=== PATIENT | female | born 1935 | race Caucasian/White ===

== ENCOUNTER → 2017-12-22 10:37 | Outpatient (CLI) | payer MEDICARE, OTHER, SELFPAY ==
[2017-10-19 13:16] VITALS: BP 148/74; BP 150/78; BP 152/77
[2017-11-30 12:57] VITALS: BP 152/86; BMI 18.2
--- NOTE | 2017-12-22 10:41 | ECHOD_ITS ---
Reason For Study: HTN Procedure This was a 2D Doppler, Color Flow transthoracic echocardiogram. Exam performed in department. Left Ventricle Normal LV size. Mid cavitary false tendon noted. Left ventricular systolic function is normal. The estimated ejection fraction is 65 %. Stage 1 diastolic dysfunction. No regional wall motion abnormalities noted. Right Ventricle Normal RV size. Normal systolic function. Atria Normal left atrium. Normal right atrium. Mitral Valve Normal mitral valve. Mild (1+) eccentric mitral valve insufficiency. Tricuspid Valve Normal tricuspid valve. Mild (1+) tricuspid valve insufficiency. Pulmonary artery systolic pressure is 30 mmHg. Aortic Valve Trisinus/trileaflet aortic valve. Mild focal aortic valve calcification. Mild (1+) aortic valve insufficiency. Pulmonic Valve Normal pulmonic valve. Great Vessels Normal aortic root. The pulmonary artery is normal size. Normal inferior vena cava. Pericardium/Pleural No pericardial effusion. MMode/2D Measurements & Calculations LVIDd: 3.6 cm IVSd: 1.1 cm LVOT diam: 2.0 cm LVIDs: 2.3 cm LVPWd: 0.99 cm LVOT area: 3.1 cm2 RVDd: 2.9 cm FS: 35.2 % Ao root diam: 2.7 cm LAV(MOD-bp): 46.6 ml LA A4 area: 16.1 cm2 LA dimension: 3.1 cm LAV(MOD-bp) Indexed: 31.9 ml/m2 LAV(MOD-sp2): 47.8 ml LAV(MOD-sp4): 41.8 ml RA A4 area: 13.5 cm2 Doppler Measurements & Calculations MV E max oren: 92.1 cm/sec Lat Peak E' Oren: 7.8 cm/sec Med Peak E' Oren: 5.3 cm/sec MV A max orne: 114.3 cm/sec E/E' lat: 11.8 E/E' med: 17.4 MV E/A: 0.81 Ao V2 max: 179.8 cm/sec AI max oren: 392.0 cm/sec LV V1 max: 113.4 cm/sec Ao max P.9 mmHg AI max P.5 mmHg LV V1 max P.1 mmHg Ao V2 mean: 129.4 cm/sec AI dec slope: 195.1 cm/sec2 LV V1 mean P.8 mmHg Ao mean P.3 mmHg AI P1/2t: 588.6 msec LV V1 mean: 79.6 cm/sec Ao V2 VTI: 33.7 cm LV V1 VTI: 21.9 cm PANKAJ(I,D): 2.0 cm2 PANKAJ(V,D): 2.0 cm2 SV(LVOT): 68.6 ml PA V2 max: 82.1 cm/sec TR max oren: 251.5 cm/sec TR max P.3 mmHg Interpretation Summary Normal LV size. Left ventricular systolic function is normal. The estimated ejection fraction is 65 %. Stage 1 diastolic dysfunction. Mild (1+) aortic valve insufficiency. Ordering Physician: Luis Leiva Referring Physician: Franci Zendejas Performed By: Katheryn Nation, KATHERINE, RVT
== END ==
PROVIDERS: Family Provider Internal Medicine; PCP Internal Medicine; Visit Provider Internal Medicine Cardiovascular Disease
DX: I35.1 Nonrheumatic aortic (valve) insufficiency (principal); I10 Essential (primary) hypertension
CPT/HCPCS: 93306

== ENCOUNTER → 2017-12-26 21:00 | Outpatient (REF) | payer MEDICARE, OTHER, SELFPAY ==
[2017-12-27 08:20] LABS: Color, Urine Yellow (Yellow); Glucose, Dipstick Normal (Normal); Ketone-Dipstick Negative (Negative); Leukocyte Esterase-Dipstick 500 /ul (Negative); Nitrite-Dipstick Positive (Negative); Occult Blood-Urine 50 /ul (Negative); Protein-Dipstick 30 mg/dl (Negative); Urine Bilirubin Dipstick Negative (Negative); Urine Clarity Cloudy (Clear); Urine Urobilinogen Normal (Normal)
== END ==
LOC: OLS.DANBUR 21:00
PROVIDERS: Visit Provider Internal Medicine
DX: N39.0 Urinary tract infection, site not specified (principal)
CPT/HCPCS: 81002; 87077; 87086; 87088; 87186

== ENCOUNTER 2019-03-16 21:03 | Emergency (ER) | payer MEDICARE, OTHER, SELFPAY ==
[2017-11-30 12:57] VITALS: BMI 18.2
[2019-03-16 21:05] VITALS: BP 162/88; PULSE 73; RESP 18; TEMP 36.7; O2SAT 98; BMI 18.3
--- NOTE | 2019-03-16 21:47 | CT_ITS ---
HISTORY: FALL, LACERATION TO BACK OF HEAD. NO LOC EXAM/TECHNIQUE: CT Head or Brain W/O Contrast: Multiplanar reformats provided. COMPARISON: None. FINDINGS: # of images incl. paperwork: 220 No evidence of intracranial hemorrhage, hydrocephalus mass, or acute infarct. No skull fracture. Scattered chronic appearing hypodensities in the cerebral white matter. Calcific atherosclerosis of the intracranial arteries. Laceration high posterior scalp to the right of midline. CT/Brain/Head without Contrast IMPRESSION: No evidence of intracranial injury or skull fracture. Individualized dose optimization techniques were used for this CT. at 2226 Reported and signed by: Chucho Sherwood MD Electronically Signed: Chucho Sherwood, at 22:24 EDT Tel , Service support ,
--- NOTE | 2019-03-16 22:04 | ED.VIS.INJ ---
History of Present Illness Chief Complaint: Head Injury Informant: Patient, Family Onset: Hours - 1-2 Mechanism/Context: Fall Quality of Pain: Aching, - - sore Location: occipital scalp Current Severity: Mild Maximum Severity: Moderate Worsened by: palpation Relieved by: leaving alone Associated Symptoms: Negative for: Weakness, Inability to ambulate, Loss of consciousness, Amnesia Narrative: Patient has a history of peripheral neuropathy which causes her to sometimes lose her balance. She states that happened tonight, she lost her balance while turning, and fell against the corner of a piece of furniture in her bedroom, creating a scalp laceration in the occipital lesion with bleeding. No loss of consciousness. She does have a headache. No focal neurologic symptoms that are new, except for her chronic paresthesias from her neuropathy in her hands and feet. No nausea or vomiting or mental status changes. She takes no antiplatelet or anticoagulant medications. Tetanus Immunization: >10 years - Past Medical History (1) Peripheral neuropathy Status: Chronic (2) Hypertension Status: Chronic Past Medical History - Allergies and Home Meds Allergies/Adverse Reactions: Allergies enalaprilat [From Vasotec] Allergy (Verified 03/16/19 21:07) Swelling Primary Care Physician: Franci Zendejas MD [Primary Care Provider] - Surgical History: - - hysterectemy, surgery on bladder for incontinence. Lives: Alone Smoking Status: Former smoker - Family History Maternal Family History: Family History (Last Reviewed 11/30/17 @ 13:47 by Luis Leiva MD) Mother Colon cancer Sister Cancer Family History: Reports: - - colon cancer in mother Sibling Family History: Family History (Last Reviewed 11/30/17 @ 13:47 by Luis Leiva MD) Mother Colon cancer Sister Cancer Family History: Reports: - - sister with ovarian cancer. Review of Systems General: Denies: Chills, Fever Eyes: Denies: Visual changes - bilaterally, Diplopia ENT: Denies: Bilateral ear pain, Rhinorrhea, Sore throat Cardiovascular: Denies: Chest pain, Palpitations Respiratory: Denies: Dyspnea, Cough Gastrointestinal: Denies: Abdominal pain, Nausea, Vomiting Musculoskeletal: Denies: Neck pain, Back pain, Swelling, Extremity Pain Skin: Reports: Wounds. Denies: Rash Neurological: Reports: Headache, Numbness - chronic, unchanged. Denies: Weakness Physical Exam Vital Signs/Narrative: Vital Signs Temp Pulse Resp BP Pulse Ox 03/16/19 21:05 98.0 F 73 18 162/88 H 98 Inital Vital Signs reviewed: Yes General: Well nourished, Well developed Head: Normocephalic, Trauma - occipital scalp lac, Tenderness - occipital scalp. no crepitance or depression. Eyes: Perrl, EOMI ENT: TM's clear, No hemotympanum or drainage, No trauma. Negative for: Hemotympanum, Otorrhea, Nasal trauma Neck: Nontender, Full ROM. Negative for: Spinal Tenderness Skin: Normal color, No rash, Trauma - 4cm curvilinear laceration occipital scalp, clean, down to but not involving galea Neurological: Alert, Oriented x3, Cranial nerves II-XII grossly intact, Normal Strength, Normal Sensation, Normal Gait Psychological: Normal affect - Coma Scale Eye Opening: Spontaneous Motor: Obeys Commands Verbal: Oriented Coma Scale Total: 15 Diagnostic/Tx/Re-eval Clinical Impression(s) from Imaging Studies Brain CT 03/16/19 21:47 IMPRESSION: No evidence of intracranial injury or skull fracture. Individualized dose optimization techniques were used for this CT. at 2226 Reported and signed by: Chucho Shrewood MD Electronically Signed: Chucho Sherwood, at 22:24 EDT Tel , Service support , - Medical Decision Making Pt declines offer for tetanus update. Head CT was unremarkable. Her laceration was cleansed and scrubbed after it was locally anesthetized with lidocaine with epinephrine, irrigated under pressure, and closed with 5 skin mary ann. Advised to have them reevaluated in 5-7 days for removal. Procedures - Lacerations occipital scalp Length: 4 cm Depth: Sub Q - to galea Shape: Linear - curvilinear Prep: Sterile Conditions, Chlorhexadine Laceration Repair: Lidocaine with epi - 7cc Irrigated (ml): 40 Number of Sutures/[place]: 5 Suture Information: - - mary ann Comment: good skin edge apposition and hemostasis. no complications. tolerated well. ED Disposition - Plan for ED Patient: Disposition: Home or Assisted Living Diagnosis: Closed head injury without loss of consciousness, Occipital scalp laceration Instructions: ED Head Injury Closed, ED Laceration Scalp Stitch Or Stap Referrals: Franci Zendejas MD [Primary Care Provider] - (5-7 days for wound reevaluation and staple removal)
--- NOTE | 2019-03-16 22:08 | ED.DCSUM_ITS ---
History of Present Illness Chief Complaint: Head Injury Informant: Patient, Family Onset: Hours - 1-2 Mechanism/Context: Fall Quality of Pain: Aching, - - sore Location: occipital scalp Current Severity: Mild Maximum Severity: Moderate Worsened by: palpation Relieved by: leaving alone Associated Symptoms: Negative for: Weakness, Inability to ambulate, Loss of consciousness, Amnesia Narrative: Patient has a history of peripheral neuropathy which causes her to sometimes lose her balance. She states that happened tonight, she lost her balance while turning, and fell against the corner of a piece of furniture in her bedroom, creating a scalp laceration in the occipital lesion with bleeding. No loss of consciousness. She does have a headache. No focal neurologic symptoms that are new, except for her chronic paresthesias from her neuropathy in her hands and fe et. No nausea or vomiting or mental status changes. She takes no antiplatelet or anticoagulant medications. Tetanus Immunization: >10 years - Past Medical History (1) Peripheral neuropathy Status: Chronic (2) Hypertension Status: Chronic Past Medical History - Allergies and Home Meds Allergies/Adverse Reactions: Allergies enalaprilat [From Vasotec] Allergy (Verified 03/16/19 21:07) Swelling Primary Care Physician: Franci Zendejas MD [Primary Care Provider] - Surgical History: - - hysterectemy, surgery on bladder for incontinence. Lives: Alone Smoking Status: Former smoker - Family History Maternal Family History: Family History (Last Reviewed 11/30/17 @ 13:47 by Luis Leiva MD) Mother Colon cancer Sister Cancer Family History: Reports: - - colon cancer in mother Sibling Family History: Family History (Last Reviewed 11/30/17 @ 13:47 by Luis Leiva MD) Mother Colon cancer Sister Cancer Family History: Reports: - - sister with ovarian cancer. Review of Systems General: Denies: Chills, Fever Eyes: Denies: Visual changes - bilaterally, Diplopia ENT: Denies: Bilateral ear pain, Rhinorrhea, Sore throat Cardiovascular: Denies: Chest pain, Palpitations Respiratory: Denies: Dyspnea, Cough Gastrointestinal: Denies: Abdominal pain, Nausea, Vomiting Musculoskeletal: Denies: Neck pain, Back pain, Swelling, Extremity Pain Skin: Reports: Wounds. Denies: Rash Neurological: Reports: Headache, Numbness - chronic, unchanged. Denies: Weakness Physical Exam Vital Signs/Narrative: Vital Signs Temp Pulse Resp BP Pulse Ox 03/16/19 21:05 98.0 F 73 18 162/88 H 98 Inital Vital Signs reviewed: Yes General: Well nourished, Well developed Head: Normocephalic, Trauma - occipital scalp lac, Tenderness - occipital scalp. no crepitance or depression. Eyes: Perrl, EOMI ENT: TM's clear, No hemotympanum or drainage, No trauma. Negative for: Hemotympanum, Otorrhea, Nasal trauma Neck: Nontender, Full ROM. Negative for: Spinal Tenderness Skin: Normal color, No rash, Trauma - 4cm curvilinear laceration occipital scalp, clean, down to but not involving galea Neurological: Alert, Oriented x3, Cranial nerves II-XII grossly intact, Normal Strength, Normal Sensation, Normal Gait Psychological: Normal affect - Coma Scale Eye Opening: Spontaneous Motor: Obeys Commands Verbal: Oriented Coma Scale Total: 15 Diagnostic/Tx/Re-eval Clinical Impression(s) from Imaging Studies Brain CT 03/16/19 21:47 IMPRESSION: No evidence of intracranial injury or skull fracture. Individualized dose optimization techniques were used for this CT. at 2226 Reported and signed by: Chucho Sherwood MD Electronically Signed: Chucho Sherwood, at 22:24 EDT Tel , Service support , - Medical Decision Making Pt declines offer for tetanus update. Head CT was unremarkable. Her laceration was cleansed and scrubbed after it was locally anesthetized with lidocaine with epinephrine, irrigated under pressure, and closed with 5 skin ryan. Advised to have them reevaluated in 5-7 days for removal. Procedures - Lacerations occipital scalp Length: 4 cm Depth: Sub Q - to galea Shape: Linear - curvilinear Prep: Sterile Conditions, Chlorhexadine Laceration Repair: Lidocaine with epi - 7cc Irrigated (ml): 40 Number of Sutures/[place]: 5 Suture Information: - - ryan Comment: good skin edge apposition and hemostasis. no complications. tolerated well. ED Disposition - Plan for ED Patient: Disposition: Home or Assisted Living Diagnosis: Closed head injury without loss of consciousness, Occipital scalp laceration Instructions: ED Head Injury Closed, ED Laceration Scalp Stitch Or Stap Referrals: Franci Zendejas MD [Primary Care Provider] - (5-7 days for wound reevaluation and staple removal)
[2019-03-16 23:47] VITALS: BP 152/87; PULSE 89; RESP 16; O2SAT 98
[2019-03-17 00:07] VITALS: BP 162/82; PULSE 87; RESP 16; O2SAT 98
== END 2019-03-17 00:14 | disposition home or self-care (01) ==
PROVIDERS: Emergency Provider Emergency Medicine; Family Provider Internal Medicine; PCP Internal Medicine
DX: S01.01XA Laceration without foreign body of scalp, initial encounter (principal); W22.03XA Walked into furniture, initial encounter; Y93.9 Activity, unspecified; Y92.003 Bedroom of unspecified non-institutional (private) residence as the place of occurrence of the external cause; Y99.9 Unspecified external cause status; I10 Essential (primary) hypertension; G62.9 Polyneuropathy, unspecified; Z87.891 Personal history of nicotine dependence
CPT/HCPCS: 12002; 70450; 99283

== ENCOUNTER 2019-04-26 23:50 | Emergency (ER) | payer MEDICARE, OTHER, SELFPAY ==
[2019-04-26 23:50] VITALS: BP 143/82; PULSE 69; RESP 16; TEMP 36.2; O2SAT 96; BMI 20.2
--- NOTE | 2019-04-27 02:02 | RAD_ITS ---
HISTORY: Status post fall with left-sided chest and rib pain XR Ribs Unilateral W/ PA Chest Min 3 Views TECHNIQUE: Single frontal view of chest and 4 views of the left ribs. # of images incl. paperwork: 5 COMPARISON: Chest x-ray 10/19/2017 FINDINGS: Normal heart size. Tortuous calcified aorta. Pulmonary vasculature appears normal. Left lung base discoid atelectasis versus scarring. Minimal left pleural effusion. No right pleural effusion. No pneumothorax. Minimally displaced posterior left eighth rib fracture. Nondisplaced fractures of the posterior aspect of left fifth, sixth, and seventh ribs. RAD/Ribs Uni Min 3V w/PA Chest IMPRESSION: 1. Left basilar discoid atelectasis versus scarring. 2. Probable minimal left pleural effusion. 3. Minimally displaced posterior left eighth rib fracture. Nondisplaced fractures posterior left fifth through seventh ribs. No pneumothorax. at 0244 Reported and signed by: Toro Rodgers MD Electronically Signed: Toro Rodgers MD at 2:43 EDT Tel , Service support ,
[2019-04-27] MEDS: traMADol 50 MG Tablet PO (02:28)
--- NOTE | 2019-04-27 03:15 | ED.VISSUMM ---
- ER Visit Summary Date of Service: 04/27/19 Chief Complaint: Fall History of Present Illness: The patient is a 83 F who presents after a fall. She presents from [facility]. She normally uses a walker but was not using it at the time of the fall. She actually fell twice today. She initially fell into a wall. She then fell into the corner of a table into the back of her left chest. She denies any head injury headache loss of consciousness amnesia. She is not anticoagulated. She denies any extremity injuries. Physical Examination: Afebrile vitals unremarkable Moist mucous membranes Heart regular rate and rhythm Patient has left posterior chest tenderness no crepitus no rib step-off Abdomen soft nontender Active full range of motion x4 extremities without pain Alert and oriented no focal or lateralizing neurological deficits Test Results: Rib series with PA chest shows minimally displaced left eighth rib fracture as well as left fifth through seventh rib fractures. No pneumothorax. Emergency Department Course and Treatment: Patient was given tramadol here and does feel better on reevaluation. She is already at a [facility] facility. She will be given a prescription for tramadol for pain control and discharged. Treatment Plan: [] Disposition: Discharge Impression: Left fifth through eighth rib fractures. This note was generated with Q[employer] dictation software. It may contain incorrect words, spelling, and punctuation that were not noted in review of the chart prior to signing ED Disposition - Plan for ED Patient: Referrals: Franci Zendejas MD [Primary Care Provider] -
--- NOTE | 2019-04-27 03:17 | ED.DEP ---
ED Disposition - Plan for ED Patient: Instructions: FRACTURE, Rib Prescriptions: traMADol [Ultram] 50 mg PO Q6H PRN 5 Days #20 tab PRN Reason: Pain Prescription Printed Referrals: Franci Zendejas MD [Primary Care Provider] - Additional Instructions: Use incentive spirometer hourly while awake
[2019-04-27 03:41] VITALS: BP 146/80; PULSE 64; RESP 14; O2SAT 96
== END 2019-04-27 03:46 | disposition home or self-care (01) ==
PROVIDERS: Emergency Provider Emergency Medicine; Family Provider Internal Medicine; PCP Internal Medicine
DX: S22.42XA Multiple fractures of ribs, left side, initial encounter for closed fracture (principal); W17.89XA Other fall from one level to another, initial encounter; Y93.9 Activity, unspecified; Y92.89 Other specified places as the place of occurrence of the external cause; Y99.9 Unspecified external cause status; I10 Essential (primary) hypertension; G62.9 Polyneuropathy, unspecified
CPT/HCPCS: 71101; 99283

== ENCOUNTER → 2019-05-30 02:15 | Outpatient (REF) | payer MEDICARE, OTHER, SELFPAY ==
[2019-05-30 08:47] LABS: Color, Urine Yellow (Yellow); Glucose, Dipstick Normal (Normal); Ketone-Dipstick Negative (Negative); Leukocyte Esterase-Dipstick 500 /ul (Negative); Nitrite-Dipstick Negative (Negative); Occult Blood-Urine 25 /ul (Negative); Protein-Dipstick 30 mg/dl (Negative); Specific Gravity, Urine 1.015 (1.002-1.030); Urine Bilirubin Dipstick Negative (Negative); Urine Clarity Sl. Cloudy (Clear); Urine Urobilinogen Normal (Normal)
== END ==
LOC: OLS.DANBUR 02:15
PROVIDERS: Visit Provider Internal Medicine
DX: N39.0 Urinary tract infection, site not specified (principal); R30.0 Dysuria; R35.0 Frequency of micturition; R32 Unspecified urinary incontinence
CPT/HCPCS: 81002; 87077; 87086; 87088; 87186

== ENCOUNTER → 2019-09-11 20:00 | Outpatient (REF) | payer MEDICARE, OTHER, SELFPAY ==
[2019-09-12 08:23] LABS: Color, Urine Yellow (Yellow); Glucose, Dipstick Normal (Normal); Ketone-Dipstick Negative (Negative); Leukocyte Esterase-Dipstick 500 /ul (Negative); Nitrite-Dipstick Negative (Negative); Occult Blood-Urine 25 /ul (Negative); Protein-Dipstick 15 mg/dl (Negative); Specific Gravity, Urine 1.015 (1.002-1.030); Urine Bilirubin Dipstick Negative (Negative); Urine Clarity Cloudy (Clear); Urine Urobilinogen Normal (Normal)
== END ==
LOC: OLS.DANBUR 20:00
PROVIDERS: Visit Provider Internal Medicine
DX: N39.0 Urinary tract infection, site not specified (principal)
CPT/HCPCS: 81002; 87077; 87086; 87088; 87186

== ENCOUNTER → 2019-12-05 19:00 | Outpatient (REF) | payer MEDICARE, OTHER, SELFPAY ==
[2019-12-06 09:12] LABS: Color, Urine Yellow (Yellow); Glucose, Dipstick Normal (Normal); Ketone-Dipstick 5 mg/dl (Negative); Leukocyte Esterase-Dipstick 500 /ul (Negative); Nitrite-Dipstick Negative (Negative); Occult Blood-Urine 150 /ul (Negative); Protein-Dipstick 100 mg/dl (Negative); Specific Gravity, Urine 1.015 (1.002-1.030); Urine Bilirubin Dipstick Negative (Negative); Urine Clarity Cloudy (Clear); Urine Urobilinogen Normal (Normal)
== END ==
LOC: OLS.DANBUR 19:00
PROVIDERS: PCP Internal Medicine; Visit Provider Internal Medicine
DX: N39.0 Urinary tract infection, site not specified (principal)
CPT/HCPCS: 81002; 87086; 87088; 87186

== ENCOUNTER → 2020-07-10 18:00 | Outpatient (REF) | payer MEDICARE, OTHER, SELFPAY ==
[2020-07-12 17:47] LABS: Color, Urine Yellow (Yellow); Glucose, Dipstick Normal (Normal); Ketone-Dipstick Negative (Negative); Leukocyte Esterase-Dipstick 500 /ul (Negative); Nitrite-Dipstick Negative (Negative); Occult Blood-Urine 10 /ul (Negative); Protein-Dipstick 15 mg/dl (Negative); Urine Bilirubin Dipstick Negative (Negative); Urine Clarity Clear (Clear); Urine Urobilinogen Normal (Normal)
== END ==
LOC: OLS.DANBUR 18:00
PROVIDERS: PCP Internal Medicine; Referring Provider Internal Medicine; Visit Provider Internal Medicine
DX: R41.0 Disorientation, unspecified (principal)
CPT/HCPCS: 81002; 87077; 87086; 87088; 87186

== ENCOUNTER → 2020-11-06 07:56 | Outpatient (REF) | payer MEDICARE, OTHER, SELFPAY ==
[2020-11-07 08:19] LABS: Color, Urine Yellow (Yellow); Glucose, Dipstick Normal (Normal); Ketone-Dipstick Negative (Negative); Leukocyte Esterase-Dipstick 500 /ul (Negative); Nitrite-Dipstick Negative (Negative); Occult Blood-Urine 10 /ul (Negative); Protein-Dipstick 15 mg/dl (Negative); Specific Gravity, Urine 1.025 (1.002-1.030); Urine Bilirubin Dipstick Negative (Negative); Urine Clarity Sl. Cloudy (Clear); Urine Urobilinogen Normal (Normal)
== END ==
LOC: OLS.DANBUR 07:56
PROVIDERS: PCP Internal Medicine; Visit Provider Internal Medicine
DX: R41.0 Disorientation, unspecified (principal)
CPT/HCPCS: 81002; 87086; 87088

== ENCOUNTER → 2021-02-21 14:15 | Outpatient (REF) | payer MEDICARE, OTHER, SELFPAY ==
[2021-02-22 15:23] LABS: Bacteria 0 SEEN /hpf (None Seen); Mucous, Urine 0 SEEN /hpf (<or=2+); Red Blood Cells-Urine 0 SEEN /hpf (0-5); Squamous Epithelial Cells - UA 0 SEEN /hpf (5-10)
[2021-02-22 15:28] LABS: Color, Urine Yellow (Yellow); Glucose, Dipstick Normal (Normal); Ketone-Dipstick Negative (Negative); Leukocyte Esterase-Dipstick 25 /ul (Negative); Nitrite-Dipstick Negative (Negative); Occult Blood-Urine Negative /ul (Negative); Protein-Dipstick Negative (Negative); Urine Bilirubin Dipstick Negative (Negative); Urine Clarity Clear (Clear); Urine Urobilinogen Normal (Normal)
[2021-02-22 15:40] LABS: White Blood Cells 0-5 SEEN /hpf (0-5)
== END ==
LOC: OLS.DANBUR 14:15
PROVIDERS: PCP Internal Medicine; Referring Provider Internal Medicine; Visit Provider Internal Medicine
DX: R82.91 Other chromoabnormalities of urine (principal); R41.82 Altered mental status, unspecified
CPT/HCPCS: 81001; 87086; 87088

== ENCOUNTER → 2021-06-24 02:00 | Outpatient (REF) | payer MEDICARE, OTHER, SELFPAY ==
[2021-06-24 06:29] LABS: Bacteria 0 SEEN /hpf (None Seen); Mucous, Urine 0 SEEN /hpf (<or=2+); Red Blood Cells-Urine 0 SEEN /hpf (0-5); Squamous Epithelial Cells - UA 0 SEEN /hpf (5-10)
[2021-06-24 07:11] LABS: Glucose, Dipstick Normal (Normal); Ketone-Dipstick Negative (Negative); Leukocyte Esterase-Dipstick 500 /ul (Negative); Nitrite-Dipstick Positive (Negative); Occult Blood-Urine 25 /ul (Negative); Protein-Dipstick 30 mg/dl (Negative); Urine Bilirubin Dipstick Negative (Negative); Urine Urobilinogen Normal (Normal); Urine pH 6.5 (5.0 - 8.0)
[2021-06-24 07:13] LABS: Color, Urine Yellow (Yellow); Urine Clarity Cloudy (Clear)
[2021-06-24 07:27] LABS: White Blood Cells >100 SEEN /hpf (0-5)
== END ==
LOC: OLS.DANBUR 02:00
PROVIDERS: PCP Internal Medicine; Visit Provider Internal Medicine
DX: R41.82 Altered mental status, unspecified (principal)
CPT/HCPCS: 81001; 87086; 87088; 87186

== ENCOUNTER 2021-06-26 03:56 | Emergency (ER) | payer MEDICARE, OTHER, SELFPAY ==
[2021-06-26 03:57] VITALS: BP 121/94; PULSE 77; RESP 18; TEMP 37; O2SAT 95; BMI 18.8
--- NOTE | 2021-06-26 04:09 | EKG12_ITS ---
Test Reason : GENERAL ILLNESS Blood Pressure : / mmHG Vent. Rate : 076 BPM Atrial Rate : 076 BPM P-R Int : 208 ms QRS Dur : 122 ms QT Int : 442 ms P-R-T Axes : 068 -46 097 degrees QTc Int : 497 ms Sinus rhythm with Premature atrial complexes Left axis deviation Left bundle branch block Abnormal ECG Confirmed by NANO SNIDER, ANDREW ([id number]), editor at large SAMIA BAKER ([id number]) on 06/30/2021 8:22:58 AM Referred By: LIDIA Confirmed By:CARLOS MCGILL MD
--- NOTE | 2021-06-26 04:10 | EX.ED.DYSGE1 ---
HPI History of Present Illness Chief Complaint: General Illness Informant: patient and family Narrative Narrative: Patient evidently had some mild dysuria and frequent urination for about 2 days. She otherwise felt fine. No nausea vomiting fevers or chills. A analysis was done. She was placed on Macrobid. She took her first dose this past evening. She took the medicine went to bed. She then woke up with nausea vomiting. She felt a little lightheaded. She now feels better. She denies having nausea now but she seems to hesitate when she answers. She never had any pain in her chest or abdomen. No flank pain. No headache. No focal neurologic deficit. No trouble breathing. No reported blood in the vomitus. No history of anticoagulation. She and her son state that she has a history of being highly sensitive to many antibiotics. This is a common problem. Neither 1 remembers an antibiotic that works and does not cause the problem. She states they usually find the right one eventually. [facility] Medical History (Updated 06/26/21 @ 05:[address] Adi Luna MD) Hypertension Left bundle branch block Peripheral neuropathy Home Medications fluticasone propionate 1 spray NASAL QHS 07/01/16 [History Last Taken 06/25/21] calcium carbonate 600 mg calcium (1,500 mg) tablet 600 mg PO BID tab 11/30/17 [History Last Taken 06/25/21 17:00] multivitamin,no-itlf-iwjmvrji 1 tab PO QDAY 11/30/17 [History Last Taken 06/25/21] oxybutynin chloride 5 mg PO DAILY 03/16/19 [History Last Taken 06/25/21] amlodipine 5 mg tablet 5 mg PO DAILY #90 tab 01/08/21 [Rx Last Taken 06/25/21] cephalexin 500 mg PO Q6 #28 cap 06/26/21 [Rx Last Taken Unknown] light mineral oil-mineral oil [Soothe XP] 1 drp OPHTHALMIC (EYE) BID 06/26/21 [History Last Taken 06/25/21 17:00] metoprolol succinate 50 mg PO DAILY 06/26/21 [History Last Taken 06/25/21] nitrofurantoin monohyd/m-cryst [Macrobid] 100 mg PO BID 06/26/21 [History Last Taken 06/25/21 20:00] ondansetron 4 mg PO Q8H PRN #10 tab 06/26/21 [Rx Last Taken Unknown] timolol maleate 1 drp EACH EYE BID 06/26/21 [History Last Taken 06/25/21 17:00] Allergy/AdvReac Type Severity Reaction Status Date / Time enalaprilat [From Vasotec] Allergy Swelling Verified 06/26/21 04:04 sulfamethoxazole Allergy Other Verified 06/26/21 04:04 [From Bactrim] trimethoprim [From Bactrim] Allergy Other Verified 06/26/21 04:04 Family History Mother Colon cancer Sister Cancer ovarian Surgical History History of hysterectomy History of right hip replacement (~06/2016) Social History Smoking Status: Never smoker ROS ROS ED Constitutional Constitutional ED: Denies chills or fever(s) Eyes Eyes: Denies blurry vision ENT ENT ED: Denies rhinorrhea or sore throat Cardiovascular Cardiovascular: Denies chest pain or palpitations Respiratory/Chest Respiratory/Chest: Denies cough or dyspnea Gastrointestinal Gastrointestinal: Reports nausea and vomiting; Denies abdominal pain or diarrhea Genitourinary Genitourinary ED: Reports dysuria and urinary frequency; Denies hematuria Musculoskeletal Musculoskeletal: Denies back pain Integumentary Denies rash Neurologic Neurologic: Denies headache(s), paresthesias or weakness Endocrine Endocrinology: Denies polydipsia or polyuria Allergic/Immunologic Allergic/Immunologic ED: Denies urticaria EXAM Physical Exam Const Vital Signs: 06/26/21 03:57 06/26/21 06:40 Temperature 98.6 F Temperature Source Temporal Pulse Rate 77 78 Respiratory Rate 18 18 Blood Pressure 121/94 H 118/68 Blood Pressure Mean 103 Pulse Ox 95 Oxygen Delivery Method Room Air Positive well nourished and well developed General Appearance ED: well developed and NAD HEENT Reports dry mucous membranes Mouth ED: Yes dry mucous membranes Mouth: dry mucous membranes Eyes General Eye ED: Negative for pale conjunctiva or scleral icterus Neck no JVD Chest Wall inspection of chest normal Resp normal respiratory effort and clear to auscultation bilaterally Cardio regular rate, regular rhythm and no murmurs GI normal to inspection, nondistended, normoactive bowel sounds and non-tender Palpation: soft Back/Spine no CVA tenderness Neuro Sensorium / Orientation: alert Psych mental status grossly normal Skin no rashes or lesions noted MDM MDM MDM Narrative Medical decision making narrative: Patient does have an elevated white count. Remainder of CBC is unremarkable. Electrolytes are unremarkable other than an increased BUN to creatinine ratio and she was given IV fluids. Her urinalysis was cloudy with 50-100 white cells consistent with a UTI. I looked back over multiple urine cultures in the past. They are usually sensitive to amoxicillin. Some have been resistant to nitrofurantoin. We will switch her over to Keflex. Her nausea is gone. She feels better. I think at this point we do not have to admit her to the hospital. Certainly if she does not get better or has recurrent vomiting issues we may have to do that. I will give a dose of Rocephin here so we can get medicines and IV to avoid complications initially. Lab Data Labs: Laboratory Results - last 24 hr 06/26/21 06/26/21 06/26/21 04:14 04:14 04:30 WBC 16.8 H RBC 4.37 Hgb 12.5 Hct 38.2 MCV 87.4 MCH 28.6 MCHC 32.7 RDW Std Deviation 40.2 RDW Coeff of Jeremy 12.6 Plt Count 310 MPV 9.5 Immature Gran % (Auto) 0.500 Neut % (Auto) 85.4 H Lymph % (Auto) 9.6 L [place] % (Auto) 3.8 Eos % (Auto) 0.3 Baso % (Auto) 0.4 Absolute Neuts (auto) 14.3 H Absolute Lymphs (auto) 1.61 Nucleated RBC % 0 Sodium 138 Potassium 3.5 Chloride 103 Carbon Dioxide 29.0 Anion Gap 6 BUN 21 H Creatinine 0.94 Estim Creat Clear Calc 36.22 Est GFR (MDRD) Af Amer 73 Est GFR (MDRD) Non-Af 60 BUN/Creatinine Ratio 22.4 H Glucose 123 H Calcium 9.2 Urine Color Yellow Urine Clarity Sl. Cloudy Urine pH 7.0 Ur Specific [place] 1.005 Urine Protein 30 H Urine Glucose (UA) Normal Urine Ketones Negative Urine Occult Blood 50 H Urine Nitrite Negative Urine Bilirubin Negative Urine Urobilinogen Normal Ur Leukocyte Esterase 500 H Urine RBC 0-5 SEEN Urine WBC 50-100 SEEN Ur Squamous Epith Cells 0 SEEN Urine Bacteria 0 SEEN Hyaline Casts 0-5 SEEN Urine Mucus 0 SEEN EKG Initial EKG: Comments: EKG done for generalized weakness nausea and read by me. This shows sinus rhythm with overall rate of 76. There is a PAC. There is also a left bundle branch block. No acute ST elevation or depression that would not be typical of left bundle. VA is long. QTc is long. Overall, this is similar to EKG of 19 October 2017 Discharge Plan Triage Chief Complaint: General Illness ED Provider: Adi Luna Dx/Rx/DC Orders Clinical Impression: Acute UTI, Medication adverse effect Prescriptions: New cephalexin [cephalexin] 500 MG capsule 500 mg PO Q6 Qty: 28 RF: 0 ondansetron 4 mg tablet,disintegrating 4 mg PO Q8H PRN (Reason: nausea and vomiting) Qty: 10 RF: 0 No Action calcium carbonate [Calcium 600] 600 mg calcium (1,500 mg) tablet 600 mg PO BID RF: 0 multivitamin,ye-yvcb-fveucqte tablet tablet 1 tab PO QDAY RF: 0 fluticasone propionate 1 SPRAY spray,suspension 1 spray NASAL QHS RF: 0 oxybutynin chloride 5 MG tablet 5 mg PO DAILY RF: 0 metoprolol succinate 50 mg Tablet Extended Release 24 Hr 50 mg PO DAILY RF: 0 timolol maleate 0.5 % Drops 1 drp EACH EYE BID RF: 0 nitrofurantoin monohyd/m-cryst [Macrobid] 100 mg Capsule 100 mg PO BID RF: 0 Soothe XP 1-4.5 % Drops 1 drp OPHTHALMIC (EYE) BID RF: 0 amlodipine 5 mg tablet 5 mg PO DAILY Qty: 90 RF: 3 Primary Care Provider: Franci Zendejas Referrals: Franci Zendejas MD [Primary Care Provider] - 1-2 Days if not improving Disposition Disposition: Home, Self Care Discharge Date/Time: 06/26/21 06:25
[2021-06-26 04:32] LABS: Absolute Lymphocyte Count 1.61 X10^3/uL (0.83-4.51); Absolute Neutrophil Count 14.3 X10^3/uL (2.0-7.7); Basophil# 0.06 X10^3/uL; Basophil% 0.4 % (0-1); Eosinophil# 0.05 X10^3/uL; Eosinophils% 0.3 % (0-5); Hematocrit 38.2 % (37-47); Hemoglobin 12.5 g/dL (12.0-15.0); Lymphocyte # 1.61 X10^3/ul (0.83-4.51); Lymphocyte % 9.6 % (19-41); Mean Corp Hgb Conc 32.7 g/dL (32-36); Mean Corpuscular Hgb 28.6 pg (27.0-32.0); Mean Corpuscular Volume 87.4 fL (81-99); Mean Platelet Vol. 9.5 fl (6.2-12.0); Monocyte# 0.64 X10^3/uL; Monocyte% 3.8 % (0-10); NRBC Flagged by Analyzer 0 % (0-5); Neutrophil # 14.34 X10^3/uL (2.7-7.7); Neutrophil % 85.4 % (47-70); Platelet Count 310 K/mm3 (150-450); RBC Distribution Width CV 12.6 % (11.6-14.6); RBC Distribution Width SD 40.2 fl (35.1-43.9); Red Blood Count 4.37 M/mm3 (4.2-5.4); White Blood Count 16.8 K/mm3 (4.4-11.0)
[2021-06-26 04:36] LABS: Bacteria 0 SEEN /hpf (None Seen); Mucous, Urine 0 SEEN /hpf (<or=2+); Squamous Epithelial Cells - UA 0 SEEN /hpf (5-10)
[2021-06-26 04:37] LABS: Color, Urine Yellow (Yellow); Glucose, Dipstick Normal (Normal); Ketone-Dipstick Negative (Negative); Leukocyte Esterase-Dipstick 500 /ul (Negative); Nitrite-Dipstick Negative (Negative); Occult Blood-Urine 50 /ul (Negative); Protein-Dipstick 30 mg/dl (Negative); Specific Gravity, Urine 1.005 (1.002-1.030); Urine Bilirubin Dipstick Negative (Negative); Urine Clarity Sl. Cloudy (Clear); Urine Urobilinogen Normal (Normal)
[2021-06-26] MEDS: Ondansetron 4 MG/2 ML Vial IV (04:40)
[2021-06-26 04:53] LABS: Anion Gap 6 (5-15); BUN 21 mg/dL (7-18); BUN/Creat Ratio 22.4 RATIO (10-20); Calcium,Total 9.2 mg/dL (8.5-10.1); Chloride 103 mmol/L (98-107); Creatinine, Serum 0.94 mg/dL (0.55-1.02); EST Glomerular Filtration Rate 60 mL/min (>60); Est Glom Filt Rate - Afr Amer 73 mL/min (>60); Estimated Creatinine Clearance 36.22 ml/min; Glucose 123 mg/dL (74-106); Potassium 3.5 mmol/L (3.5-5.1); Sodium Level 138 mmol/L (136-145)
[2021-06-26 04:55] LABS: Hyaline Cast 0-5 SEEN /lpf (0-5)
[2021-06-26 04:56] LABS: White Blood Cells 50-100 SEEN /hpf (0-5)
[2021-06-26 04:57] LABS: Red Blood Cells-Urine 0-5 SEEN /hpf (0-5)
[2021-06-26] MEDS: Ceftriaxone 1 GM/50 ML BAG IV (05:50)
[2021-06-26 06:40] VITALS: BP 118/68; PULSE 78; RESP 18
== END 2021-06-26 06:25 | disposition home or self-care (01) ==
PROVIDERS: Emergency Provider Emergency Medicine; PCP Internal Medicine
DX: N39.0 Urinary tract infection, site not specified (principal); T50.905A Adverse effect of unspecified drugs, medicaments and biological substances, initial encounter; Y92.9 Unspecified place or not applicable; I44.7 Left bundle-branch block, unspecified; G62.9 Polyneuropathy, unspecified; I10 Essential (primary) hypertension
CPT/HCPCS: 80048; 81001; 85025; 87086; 93005; 96365; 96375; 99285; J7030; A4216; J2405

== ENCOUNTER → 2022-02-10 | Outpatient (REF) | payer MEDICARE, OTHER, SELFPAY ==
[2022-02-10 16:57] LABS: Color, Urine Yellow (Yellow); Glucose, Dipstick Normal (Normal); Ketone-Dipstick Negative (Negative); Leukocyte Esterase-Dipstick 500 /ul (Negative); Nitrite-Dipstick Negative (Negative); Occult Blood-Urine 10 /ul (Negative); Protein-Dipstick Negative (Negative); Urine Bilirubin Dipstick Negative (Negative); Urine Clarity Clear (Clear); Urine Urobilinogen Normal (Normal); Urine pH 6.5 (5.0 - 8.0)
== END | disposition home or self-care (01) ==
LOC: OLS.DANBUR 16:42
PROVIDERS: PCP Internal Medicine; Visit Provider Internal Medicine
DX: R41.0 Disorientation, unspecified (principal)
CPT/HCPCS: 81002; 87086; 87088

== ENCOUNTER → 2022-07-27 | Outpatient (REF) | payer MEDICARE, OTHER, SELFPAY ==
[2022-07-28 08:53] LABS: Glucose, Dipstick Normal (Normal); Ketone-Dipstick Negative (Negative); Leukocyte Esterase-Dipstick 100 /ul (Negative); Nitrite-Dipstick Negative (Negative); Occult Blood-Urine Negative /ul (Negative); Protein-Dipstick 15 mg/dl (Negative); Specific Gravity, Urine 1.015 (1.002-1.030); Urine Bilirubin Dipstick Negative (Negative); Urine Urobilinogen Normal (Normal); Urine pH 6.5 (5.0 - 8.0)
[2022-07-28 08:54] LABS: Color, Urine Yellow (Yellow); Urine Clarity Clear (Clear)
== END ==
LOC: OLS.DANBUR 14:30
PROVIDERS: PCP Internal Medicine; Visit Provider Internal Medicine
DX: R41.0 Disorientation, unspecified (principal); R44.3 Hallucinations, unspecified; R35.0 Frequency of micturition
CPT/HCPCS: 81002; 87077; 87086; 87088; 87186

== ENCOUNTER 2022-08-11 16:57 | Observation (INO) | payer MEDICARE, OTHER, SELFPAY ==
[2022-08-11 16:57] VITALS: BP 161/116; PULSE 72; RESP 15; TEMP 36.4; O2SAT 97; BMI 18.1
--- NOTE | 2022-08-11 17:20 | EDS_ITS ---
HPI History of Present Illness Chief Complaint: Lower Extremity Injury Informant: patient, family and EMS Narrative Narrative: Patient presents after having a fall 2 days ago. They state that she was getting around at her baseline yesterday which is often with a Rollator or wheelchair. Today she had increased right hip pain with any ambulation and was requiring 2 person assist. Son states she does have a history of a right hip fracture that required surgery. He is not sure if they pinned it or completely replaced her right hip. She is not on blood thinners. She has baseline dementia. [facility] Medical History Dementia Hypertension Left bundle branch block Peripheral neuropathy Home Medications fluticasone propionate 50 mcg/actuation nasal spray,suspension 1 spray QHS allergies 07/01/16 [History Last Taken 06/25/21] calcium carbonate 600 mg calcium (1,500 mg) tablet (Calcium) 600 mg PO BID supplementation 11/30/17 [History Last Taken 06/25/21 17:00] multivitamin,mn-tnbw-[id number] (Complete Multivitamin tablet) 1 tab PO QDAY 11/30/17 [History Last Taken 06/25/21] oxybutynin chloride 5 mg tablet 5 mg PO DAILY uterovgainal prolapse 03/16/19 [History Last Taken 06/25/21] amlodipine 5 mg tablet 5 mg PO DAILY #90 tabs 01/08/21 [Rx Last Taken 06/25/21] cephalexin 500 mg capsule 500 mg PO Q6 #28 caps 06/26/21 [Rx Last Taken Unknown] light mineral oil 1 %-mineral oil 4.5 % eye drops (Soothe XP) 1 drp ophthalmic (eye) BID dry eyes 06/26/21 [History Last Taken 06/25/21 17:00] metoprolol succinate 50 mg tablet,extended release 24 hr 50 mg PO DAILY hypertension 06/26/21 [History Last Taken 06/25/21] nitrofurantoin monohydrate/macrocrystals 100 mg capsule (Macrobid) 100 mg PO BID uti 06/26/21 [History Last Taken 06/25/21 20:00] ondansetron 4 mg disintegrating tablet 4 mg PO Q8H PRN nausea and vomiting #10 tabs 06/26/21 [Rx Last Taken Unknown] timolol maleate 0.5 % eye drops 1 drp EACH EYE BID 06/26/21 [History Last Taken 06/25/21 17:00] Allergy/AdvReac Type Severity Reaction Status Date / Time enalaprilat [From Vasotec] Allergy Swelling Verified 08/11/22 17:02 sulfamethoxazole Allergy Other Verified 08/11/22 17:02 [From Bactrim] trimethoprim [From Bactrim] Allergy Other Verified 08/11/22 17:02 Family History Mother Colon cancer Sister Cancer ovarian Surgical History History of hysterectomy History of right hip replacement (~06/2016) Social History Smoking Status: Never smoker ROS ROS ED Constitutional Constitutional ED: Denies chills or fever(s) Eyes Eyes: Denies change in vision or discharge from eye(s) ENT ENT ED: Denies discharge from eye(s), rhinorrhea or sore throat Cardiovascular Cardiovascular: Denies chest pain or palpitations Respiratory/Chest Respiratory/Chest: Denies cough or dyspnea Gastrointestinal Gastrointestinal: Denies abdominal pain, diarrhea, nausea or vomiting Genitourinary Genitourinary ED: Denies difficulty urinating or dysuria Musculoskeletal Musculoskeletal: Reports extremity pain; Denies back pain Integumentary Denies Abrasions or rash Neurologic Neurologic: Denies headache(s) or weakness Allergic/Immunologic Allergic/Immunologic ED: Denies lip swelling or urticaria EXAM Physical Exam Narrative Exam Narrative: Patient lying supine in bed in no acute distress. She is pleasantly confused. She denies any pain at this time. Const Vital Signs: 08/11/22 16:57 Temperature 97.6 F L Temperature Source Temporal Pulse Rate 72 Respiratory Rate 15 Blood Pressure 161/116 H Blood Pressure Mean 131 Pulse Ox 97 Oxygen Delivery Method Room Air Positive well nourished and well developed General Appearance ED: well developed HEENT Reports moist mucous membranes Eyes PERRL and EOMs intact bilaterally Neck no lymphadenopathy Chest Wall inspection of chest normal and palpation of chest normal Resp normal respiratory effort and clear to auscultation bilaterally Cardio regular rate and regular rhythm GI normal to inspection, nondistended, normoactive bowel sounds and non-tender Extremity Extremity Narrative: Minimal tenderness over the greater trochanter of the right hip with palpation. Patient has increased pain with logroll of the hip. Equal leg lengths are noted. No overlying skin change. Neuro Neuro Narrative: Patient is alert and answers questions appropriately. She moves all 4 extremities. Psych Psych Narrative: Pleasantly confused with baseline dementia. Skin no rashes or lesions noted MDM MDM MDM Narrative Medical decision making narrative: Patient declined anything for pain. She was sent for x-rays of her pelvis and right hip. Radiography Diagnostic Testing: Clinical Impression(s) from Imaging Studies Hip/Pelvis X-Ray 08/11/22 17:35 IMPRESSION: Stable appearance to right hip prosthesis. Findings consistent with acute fracture of the distal right inferior pubis. CT would be useful for further evaluation if clinically warranted Electronically Signed: Jacob Stephen MD at 18:09 EDT Reading Location ID and State: [facility] / [place] , Service support , Treatment and Re-Evaluation Narrative: X-rays per my interpretation reveal a questionable inferior pubic ramus fracture on the right. Radiology interpretation is reviewed and does confirm fracture at this site. Right hip prosthesis appears intact. We spoke with Ananda as patient is currently in assisted living. After discussion with her business planning director they feel patient will require skilled placement for short time with physical therapy. In light of this she will be admitted here overnight for placement. I have spoken with hospitalist. Discharge Plan Triage Chief Complaint: Lower Extremity Injury ED Provider: Marian Cooley Dx/Rx/DC Orders Clinical Impression: Fracture of inferior pubic ramus, Fall Prescriptions: No Action calcium carbonate [Calcium 600] 600 mg calcium (1,500 mg) tablet 600 mg PO BID multivitamin,he-yhmw-tkojmigl tablet tablet 1 tab PO QDAY fluticasone propionate 1 SPRAY spray,suspension 1 spray NASAL QHS Label Comments: allergies oxybutynin chloride 5 MG tablet 5 mg PO DAILY Label Comments: Take 1 tablet by mouth three times daily. metoprolol succinate 50 mg Tablet Extended Release 24 Hr 50 mg PO DAILY timolol maleate 0.5 % Drops 1 drp EACH EYE BID nitrofurantoin monohyd/m-cryst [Macrobid] 100 mg Capsule 100 mg PO BID Soothe XP 1-4.5 % Drops 1 drp OPHTHALMIC (EYE) BID cephalexin [cephalexin] 500 MG capsule 500 mg PO Q6 Qty: 28 0RF ondansetron 4 mg tablet,disintegrating 4 mg PO Q8H PRN (Reason: nausea and vomiting) Qty: 10 0RF amlodipine 5 mg tablet 5 mg PO DAILY Qty: 90 3RF Primary Care Provider: Franci Zendejas Referrals: Franci Zendejas MD [Primary Care Provider] - Disposition Disposition: Acute Care Hospital [facility]
--- NOTE | 2022-08-11 17:35 | RAD_ITS ---
STUDY: X-RAY - PELVIS AND RIGHT HIP REASON FOR EXAM: Female, 87 years old. injury TECHNIQUE: 3 views of the pelvis and hip. COMPARISON: None. FINDINGS: Right hip prosthesis is noted in anatomic alignment and position.. However, there appears to be acute fracture of the distal inferior pubis with mild separation of fracture fragments RAD/HIP, UNI W/ Pelvis 2-3 Views IMPRESSION: Stable appearance to right hip prosthesis. Findings consistent with acute fracture of the distal right inferior pubis. CT would be useful for further evaluation if clinically warranted Electronically Signed: Jacob Stephen MD at 18:09 EDT ,
--- NOTE | 2022-08-11 18:27 | ED.RN ---
CALLED [facility] TO SEE IF THE PT WILL BE ABLE TO RETURN WITH HER INJURY, THEY ARE CHECKING AND WILL CALL US BACK
--- NOTE | 2022-08-11 18:47 | PCM.HP.STD ---
HPI - General General Date of Admission: 08/11/22 Date of Service: 08/11/22 HPI Narrative YANI DE LA PAZ, is a 87 F who was brought to ED from [facility] after she had fall 2 days ago on Tuesday. She slid down from the bed on Tuesday. Patient was able to get around at her baseline yesterday on wheelchair/Rollator but today she complained of severe right hip pain and was not able to stand up or sitting position even with 2 people assist. She had right hip hemiarthroplasty probably in 2016. History mainly taken from patient's son at the bedside patient has advanced dementia probably Alzheimer's dementia. In ED, patient had hip/pelvis x-ray which shows stable appearance of right hip prosthesis. Acute fracture of distal right inferior pubis. As per son he was called in the morning as patient having severe right hip pain and not able to stand up. No fever or chills. No URI symptoms. Patient had COVID-vaccine 2?does and booster. Patient is further admitted to the MedSur floor. [facility] Medical History Dementia Hypertension Left bundle branch block Peripheral neuropathy Home Medications fluticasone propionate 50 mcg/actuation nasal spray,suspension 1 spray QHS allergies 07/01/16 [History Last Taken 06/25/21] calcium carbonate 600 mg calcium (1,500 mg) tablet (Calcium) 600 mg PO BID supplementation 11/30/17 [History Last Taken 06/25/21 17:00] multivitamin,yr-kkdk-jdumkfwd (Complete Multivitamin tablet) 1 tab PO QDAY 11/30/17 [History Last Taken 06/25/21] oxybutynin chloride 5 mg tablet 5 mg PO DAILY uterovgainal prolapse 03/16/19 [History Last Taken 06/25/21] amlodipine 5 mg tablet 5 mg PO DAILY #90 tabs 01/08/21 [Rx Last Taken 06/25/21] cephalexin 500 mg capsule 500 mg PO Q6 #28 caps 06/26/21 [Rx Last Taken Unknown] light mineral oil 1 %-mineral oil 4.5 % eye drops (Soothe XP) 1 drp ophthalmic (eye) BID dry eyes 06/26/21 [History Last Taken 06/25/21 17:00] metoprolol succinate 50 mg tablet,extended release 24 hr 50 mg PO DAILY hypertension 06/26/21 [History Last Taken 06/25/21] nitrofurantoin monohydrate/macrocrystals 100 mg capsule (Macrobid) 100 mg PO BID uti 06/26/21 [History Last Taken 06/25/21 20:00] ondansetron 4 mg disintegrating tablet 4 mg PO Q8H PRN nausea and vomiting #10 tabs 06/26/21 [Rx Last Taken Unknown] timolol maleate 0.5 % eye drops 1 drp EACH EYE BID 06/26/21 [History Last Taken 06/25/21 17:00] Allergy/AdvReac Type Severity Reaction Status Date / Time enalaprilat [From Vasotec] Allergy Swelling Verified 08/11/22 17:02 sulfamethoxazole Allergy Other Verified 08/11/22 17:02 [From Bactrim] trimethoprim [From Bactrim] Allergy Other Verified 08/11/22 17:02 Family History Mother Colon cancer Sister Cancer ovarian Surgical History History of hysterectomy History of right hip replacement (~06/2016) Social History Smoking Status: Never smoker ROS ROS Narrative 14 system ROS is unobtainable from the patient as she has severe Alzheimer's dementia. As per patient's son, she has chronic peripheral neuropathy started on her upper extremity then moved to her lower extremities. She was evaluated by neurologist in [place] and [place] but they could not find the cause of. She does not have diabetes. She walks on Rollator and walker. No recent fever or chills. She has history of recurrent UTI and bacteriuria. Uterovaginal prolapse. On oxybutynin Denies diarrhea, abdominal pain or constipation. Review of Systems ROS Unobtainable: due to mental condition Vital Signs Vital Signs Vital Signs: 08/11/22 16:57 Temperature 97.6 F L Temperature Source Temporal Pulse Rate 72 Respiratory Rate 15 Blood Pressure 161/116 H Blood Pressure Mean 131 Pulse Ox 97 Oxygen Delivery Method Room Air Weight Weight: 109 lb 5.588 oz Body Mass Index (BMI) 18.1 Physical Exam Narrative Physical exam General: Awake, could not evaluate orientation as patient has severe Alzheimer's dementia. HEENT: Atraumatic, PERRLA, EOMI, Normocephalic Oral: Oral mucosa dry. No Gingival or Mucosal Lesions/ Ulcerations Neck: Supple, No JVD, Negative Carotid Bruits Lungs: Air entry diminished in bilateral lung bases. No crepitation/rhonchi Cardiovascular: Regular rate, Regular Rhythm, Normal S1, Normal S2, systolic murmur grade 3/6 at LUSB Abdomen: Bowel Sounds Present, Soft, Non Tender, Non-Distended : No renal angle tenderness. No suprapubic tenderness. Extremities: No edema, Capillary Refill Less than 3 Seconds Skin: No rashes, No breakdown Musculoskeletal: Moderate muscle atrophy of extremities. No Tenderness to Palpation of Joints or Extremities Neurological: DTR 2+/4. Detailed neuro exam unobtainable as patient does not follow command. History of peripheral neuropathy Psych/Mental Status: Flat affect, advanced dementia Results Lab / Micro Data Result Diagrams: 08/11/22 18:58 08/11/22 18:58 Radiology Impression Hip/Pelvis X-Ray 08/11/22 17:35 IMPRESSION: Stable appearance to right hip prosthesis. Findings consistent with acute fracture of the distal right inferior pubis. CT would be useful for further evaluation if clinically warranted Electronically Signed: Jacob Stephen MD at 18:09 EDT Reading Location ID and State: [facility] / [place] , Service support , Assessment & Plan Assessment/Plan (1) Fracture of inferior pubic ramus: PLAN: Plan The patient is 87-year-old female is being admitted for fall 2 days ago and found to have acute fracture of distal right inferior pubis. 1.? Debility due to fall and acute hip pain with muscle spasm due to acute fracture of distal right inferior pubis ramus: Patient is being admitted to MedSurg floor. IV fluid Ringer lactate for dehydration. Pain control. Muscle relaxant as needed. PT and OT. Patient might need discharge to SNF. 2. Advanced Alzheimer's dementia: Patient needs higher level of care in assisted living in [place]. Probably will need optimization of service, SNF. 3. Right hip fracture status post right hip hemiarthroplasty in 2016 4. Other comorbidities include hypertension and chronic peripheral neuropathy: BP is normal. Living will/advanced directive/end of life care: Patient does t have living will or advanced directive mentioned in CODE STATUS. Paper from [facility]. I discussed with patient's son who is power of state's attorney for health near the bedside. After discussion of benefits/risks procedures involved with full code, DNR CC arrest and DNR CC, the patient's son opted for DNR CC arrest no intubation The patient's son does not want artificial life support including intubation, tube feed, ventilator and/chest compression, central venous catheter, vasopressor and DC shock if needed Total time spent in [id number] encounter in discussion of advanced directive 16 minutes. Laboratory Results 08/11/22 18:58: WBC 14.0 H, RBC 4.08 L, Hgb 12.1, Hct 36.0 L, MCV 88.2, MCH 29.7, MCHC 33.6, RDW Std Deviation 41.5, RDW Coeff of Jeremy 12.9, Plt Count 247, MPV 9.8, Immature Gran % (Auto) 0.500, Neut % (Auto) 84.3 H, Lymph % (Auto) 10.6 L, [place] % (Auto) 4.5, Eos % (Auto) 0.0, Baso % (Auto) 0.1, Absolute Neuts (auto) 11.8 H, Absolute Lymphs (auto) 1.49, Nucleated RBC % 0 08/11/22 18:58: Sodium 137, Potassium 4.1, Chloride 103, Carbon Dioxide 28.0, Anion Gap 6, BUN 21 H, Creatinine 1.09 H, Estim Creat Clear Calc 29.55, Est GFR (MDRD) Af Amer 61, Est GFR (MDRD) Non-Af 51 L, BUN/Creatinine Ratio 19.3, Glucose 130 H, Calcium 9.3 Clinical Impression(s) from Imaging Studies Hip/Pelvis X-Ray 08/11/22 17:35 IMPRESSION: Stable appearance to right hip prosthesis. Findings consistent with acute fracture of the distal right inferior pubis. CT would be useful for further evaluation if clinically warranted Electronically Signed: Jacob Stephen MD at 18:09 EDT Reading Location ID and State: [facility] / [place] , Service support , Charges/Coding Visit Charges OBSV E&M: 53366 Initial observation care L3 Procedures Hospitalists Procedures: 11585 Advncd Care Plan 30 Min
[2022-08-11 18:50] VITALS: BP 116/80; PULSE 72; RESP 18; TEMP 36.6; O2SAT 97
--- NOTE | 2022-08-11 18:51 | ED.RN ---
PT ADMITTED WITH PELVIS FRACTURE
[2022-08-11] MEDS: fentaNYL 100 MCG/2 ML Ampul 25 MCG IV (18:57)
[2022-08-11 19:07] LABS: Absolute Lymphocyte Count 1.49 X10^3/uL (0.83-4.51); Absolute Neutrophil Count 11.8 X10^3/uL (2.0-7.7); Basophil# 0.01 X10^3/uL; Basophil% 0.1 % (0-1); Hemoglobin 12.1 g/dL (12.0-15.0); Lymphocyte # 1.49 X10^3/ul (0.83-4.51); Lymphocyte % 10.6 % (19-41); Mean Corp Hgb Conc 33.6 g/dL (32-36); Mean Corpuscular Hgb 29.7 pg (27.0-32.0); Mean Corpuscular Volume 88.2 fL (81-99); Mean Platelet Vol. 9.8 fl (6.2-12.0); Monocyte# 0.63 X10^3/uL; Monocyte% 4.5 % (0-10); NRBC Flagged by Analyzer 0 % (0-5); Neutrophil # 11.82 X10^3/uL (2.7-7.7); Neutrophil % 84.3 % (47-70); Platelet Count 247 K/mm3 (150-450); RBC Distribution Width CV 12.9 % (11.6-14.6); RBC Distribution Width SD 41.5 fl (35.1-43.9); Red Blood Count 4.08 M/mm3 (4.2-5.4)
[2022-08-11 19:22] LABS: Anion Gap 6 (5-15); BUN 21 mg/dL (7-18); BUN/Creat Ratio 19.3 RATIO (10-20); Calcium,Total 9.3 mg/dL (8.5-10.1); Chloride 103 mmol/L (98-107); Creatinine, Serum 1.09 mg/dL (0.55-1.02); EST Glomerular Filtration Rate 51 mL/min (>60); Est Glom Filt Rate - Afr Amer 61 mL/min (>60); Estimated Creatinine Clearance 29.55 ml/min; Glucose 130 mg/dL (74-106); Potassium 4.1 mmol/L (3.5-5.1); Sodium Level 137 mmol/L (136-145)
[2022-08-11 20:20] VITALS: BP 156/87; PULSE 67; RESP 16; TEMP 36.5; O2SAT 95
[2022-08-11 22:31] VITALS: BMI 18.2
[2022-08-11] MEDS: Lactated Ringers 1,000 ML 75 ML IV (23:14)
[2022-08-11] MEDS: 0.9% Saline Lock 10 ML Syringe IV (23:16)
[2022-08-11] MEDS: Enoxaparin 30 MG/0.3 ML Syringe SC (23:17)
[2022-08-12] VITALS (7 sets, daily range): BP systolic 126–156; BP diastolic 76–98; PULSE 67–76; RESP 16; TEMP 36.6–37.1; O2SAT 93–98
[2022-08-12 06:08] LABS: Absolute Lymphocyte Count 2.03 X10^3/uL (0.83-4.51); Absolute Neutrophil Count 11.9 X10^3/uL (2.0-7.7); Basophil# 0.01 X10^3/uL; Basophil% 0.1 % (0-1); Hematocrit 34.9 % (37-47); Hemoglobin 11.7 g/dL (12.0-15.0); Lymphocyte # 2.03 X10^3/ul (0.83-4.51); Lymphocyte % 13.9 % (19-41); Mean Corp Hgb Conc 33.5 g/dL (32-36); Mean Corpuscular Hgb 29.5 pg (27.0-32.0); Mean Corpuscular Volume 87.9 fL (81-99); Mean Platelet Vol. 9.7 fl (6.2-12.0); Monocyte# 0.57 X10^3/uL; Monocyte% 3.9 % (0-10); NRBC Flagged by Analyzer 0 % (0-5); Neutrophil # 11.94 X10^3/uL (2.7-7.7); Neutrophil % 81.6 % (47-70); Platelet Count 225 K/mm3 (150-450); RBC Distribution Width CV 12.8 % (11.6-14.6); RBC Distribution Width SD 41.1 fl (35.1-43.9); Red Blood Count 3.97 M/mm3 (4.2-5.4); White Blood Count 14.6 K/mm3 (4.4-11.0)
[2022-08-12 06:40] LABS: Anion Gap 6 (5-15); BUN 17 mg/dL (7-18); Calcium,Total 8.7 mg/dL (8.5-10.1); Chloride 104 mmol/L (98-107); Creatinine, Serum 0.85 mg/dL (0.55-1.02); EST Glomerular Filtration Rate 68 mL/min (>60); Est Glom Filt Rate - Afr Amer 82 mL/min (>60); Estimated Creatinine Clearance 37.89 ml/min; Glucose 106 mg/dL (74-106); Potassium 3.8 mmol/L (3.5-5.1); Sodium Level 138 mmol/L (136-145)
[2022-08-12] MEDS: Ensure Plus High Protein 120 ML LIQUID PO ×4 (09:19→21:48)
[2022-08-12] MEDS: Oxybutynin 5 MG Tablet PO (09:19)
[2022-08-12] MEDS: Calcium (Elemental) 500 MG Tablet PO ×2 (09:20→21:50)
[2022-08-12] MEDS: Senna/Docusate Sodium 1 Tablet 2 TABLET PO ×2 (09:20→21:50)
[2022-08-12] MEDS: amLODIPine 5 MG Tablet PO (09:20)
[2022-08-12] MEDS: Timolol 0.5% 5ML OPTH.BTL 1 DRP EACH EYE ×2 (09:21→21:50)
[2022-08-12] MEDS: Metoprolol(XL)Succ 50 MG Tablet PO (09:22)
[2022-08-12] MEDS: Carboxymethylcellulose sodium gel dropperette EACH EYE ×2 (09:24→21:53)
[2022-08-12] MEDS: Enoxaparin 30 MG/0.3 ML Syringe SC (09:24)
[2022-08-12] MEDS: Lactated Ringers 1,000 ML 75 ML IV (12:36)
--- NOTE | 2022-08-12 12:39 | PN.HOSP_ITS ---
Subjective Subjective DOS: 08/12/2022 CC: Pelvic pain Reports she continues to have pain in her pelvic area, difficult for her to pull her self up straight due to pain. Somewhat generally feeling weak. Denies chest pain or shortness of breath. Has not had a bowel movement yet today but feels like she is going to need to. No changes in urination rate noted Objective Data Objective Data Vital Signs: Vital Signs Temp Pulse Resp BP Pulse Ox O2 Del Method 98.8 F 73 16 126/76 H 95 Room Air 08/12/22 09:17 08/12/22 09:22 08/12/22 09:17 08/12/22 09:17 08/12/22 09:17 08/12/22 09:17 Oxygen Delivery Method Room Air Weight: 49.6 kg Body Mass Index (BMI) 18.2 Intake & Output: Intake and Output for Last 24 Hours 08/10/22 08/11/22 08/12/22 23:59 23:59 23:59 Intake Total 1000 / 1000 Output Total 200 / 200 Balance 800 / 800 Lab / Micro Data Result Diagrams: 08/12/22 05:50 08/12/22 05:50 Labs: Laboratory Results - last 24 hr 08/11/22 18:58: WBC 14.0 H, RBC 4.08 L, Hgb 12.1, Hct 36.0 L, MCV 88.2, MCH 29.7, MCHC 33.6, RDW Std Deviation 41.5, RDW Coeff of Jeremy 12.9, Plt Count 247, MPV 9.8, Immature Gran % (Auto) 0.500, Neut % (Auto) 84.3 H, Lymph % (Auto) 10.6 L, Curry % (Auto) 4.5, Eos % (Auto) 0.0, Baso % (Auto) 0.1, Absolute Neuts (auto) 11.8 H, Absolute Lymphs (auto) 1.49, Nucleated RBC % 0 08/11/22 18:58: Sodium 137, Potassium 4.1, Chloride 103, Carbon Dioxide 28.0, Anion Gap 6, BUN 21 H, Creatinine 1.09 H, Estim Creat Clear Calc 29.55, Est GFR (MDRD) Af Amer 61, Est GFR (MDRD) Non-Af 51 L, BUN/Creatinine Ratio 19.3, Glucose 130 H, Calcium 9.3 08/12/22 05:50: WBC 14.6 H, RBC 3.97 L, Hgb 11.7 L, Hct 34.9 L, MCV 87.9, MCH 29.5, MCHC 33.5, RDW Std Deviation 41.1, RDW Coeff of Jeremy 12.8, Plt Count 225, MPV 9.7, Immature Gran % (Auto) 0.500, Neut % (Auto) 81.6 H, Lymph % (Auto) 13.9 L, Curry % (Auto) 3.9, Eos % (Auto) 0.0, Baso % (Auto) 0.1, Absolute Neuts (auto) 11.9 H, Absolute Lymphs (auto) 2.03, Nucleated RBC % 0 08/12/22 05:50: Sodium 138, Potassium 3.8, Chloride 104, Carbon Dioxide 28.0, Anion Gap 6, BUN 17, Creatinine 0.85, Estim Creat Clear Calc 37.89, Est GFR (MDRD) Af Amer 82, Est GFR (MDRD) Non-Af 68, BUN/Creatinine Ratio 20.0, Glucose 106, Calcium 8.7 Radiography Diagnostic Testing: Radiology Impression Hip/Pelvis X-Ray 08/11/22 17:35 IMPRESSION: Stable appearance to right hip prosthesis. Findings consistent with acute fracture of the distal right inferior pubis. CT would be useful for further evaluation if clinically warranted Electronically Signed: Jacob Stephen MD at 18:09 EDT Reading Location ID and State: [address] [place] [address] , Service support , Physical Exam Const alert and no apparent distress HEENT normocephalic and head/scalp atraumatic Eyes Eyes Narrative: EOM grossly intact, anicteric Neck supple Resp normal respiratory effort and clear to auscultation bilaterally Cardio regular rate and regular rhythm GI soft to palpation, non-tender and non-distended Extremity Extremity Narrative: No edema appreciated, would not push self up in chair due to pain, was getting up to work with physical therapy Neuro moves all extremities Neuro Narrative: No overt focal deficits appreciated Psych Psych Narrative: Cooperative Assessment & Plan Assessment/Plan (1) Fracture of inferior pubic ramus: PLAN: Plan #Acute fracture of distal right inferior pubis Seen on x-ray Pain control and muscle relaxers as needed PT/OT consult-Will need placement, likely long-term per recommendations Was hydrated with LR #Fall Status post fall at [facility] living where she resides Subsequently had severe right hip pain and could not stand up even with 2 people assist Does have history of right hip hemiarthroplasty probably in 2016-hip/pelvis x- ray did show stable appearance of right hip prosthesis #Dementia Reported as advanced Alzheimer's dementia, query if she may need a higher level of care than assisted in [place] PT/OT is consulted DVT PPx: Lucio Cloud MD Charges/Coding Visit Charges OBSV E&M: 13332 Subsequent observation care L2
--- NOTE | 2022-08-12 12:42 | CASEMGMT ---
Addendum entered by Nadya Craig 08/12/22 13:39: SW spoke with pt son regarding home health PT. PT son states pt has refused therapy in the past and does not feel it will benefit pt at this time. LIZ Mcnamara Original Note: Social Work SW placed call to pt son Keith Gomez. Per Keith, pt has been living at [facility] (not memory care) for the last 4 years. Pt's dementia has progressed and she is confused. Pt can walk with a rollator and min A from staff and son states she has no balance and without staff present pt would fall quickly and it is 50/50 if she is walked to the dining room or taken in a wheelchair. Staff provides assistance will all personal care and ADLs. SW reviewed therapy notes with son and functional/pain limitations. Son states he would like his mother to return to [facility] at time of discharge and that he has talked to [facility] about this. Phone call to Berenice at [facility] and update given. Berenice states they are able to accept pt back and is recommending Palliative medicine referral for pain management. Return call to son and updated on conversation with Berenice. Son agreeable to Palliative referral. RNCM updated. Berenice requests clinicals be faxed on day of discharge. Physician updated. Plan: [facility], when medically ready with Palliative referral LIZ Mcnamara
--- NOTE | 2022-08-12 12:56 | CASEMGMT ---
Addendum entered by Nadya Craig 08/12/22 13:40: Pt son brought pt HCPOA in and SW copied document and placed on pt chart. LIZ Mcnamara Original Note: Social Work Per pt son, pt does have a living will and health care POA naming son Keith Gomez. SW informed documents are not on file at [facility] and requested they be brought in for scanning into medical record. LIZ Velazquez
--- NOTE | 2022-08-12 13:18 | CM.UR ---
Addendum entered by Karen Duron 08/12/22 14:41: Received confirmation from palliative, liaison will meet with son in room at 1030 tomorrow. Original Note: Pt screened with [facility] Palliative Care screening tool. Pt met criteria. Order received and emailed to Palliative Care.
[2022-08-12] MEDS: 0.9% Saline Lock 10 ML Syringe IV (14:06)
--- NOTE | 2022-08-12 15:31 | CHAPLAIN ---
Type of Pastoral Visit _x__ Initial Visit ___ Follow-up Visit ___ On-call Visit ___ General Patient Visit ___ Spiritual Assessment ___ Family Conference ___ Bereavement ___ Rapid Response ___ Code Blue ___ Other (describe below) Pastoral Care Referral From ___ Patient ___ Family _x__ Nurse ___ Physician ___ Launch Engineer ___ Coke Worker ___ Other (describe below) Sacrament/Intervention _x__ Active listening ___ Anointing ___ Judaism ___ Bereavement ___ Communion ___ Bess exploration ___ ___ Life review ___ Prayer ___ Reconciliation ___ Sacrament of Sick _x__ Supportive presence ___ Wedding ___ Other (describe below) Pastoral Comments asked by nursing staff to visit with this patient who exhibits confusion and calling out for family members; introduced self and role to pt who stated that she would be walking home; reoriented patient to where she was which surprised her; pt not sure how or why she came to be in the hospital; pt wanted to get back for meal at the [place]; pt requested help to go to the bathroom and BUSHWALKING GUIDE was notified by this nursing service director for assistance
--- NOTE | 2022-08-12 16:09 | CASEMGMT ---
TC to pt son Keith Gomez, explained STEELE form, he verbalized understanding. Second witness verified conversation. Copy of STEELE form placed in patient's room. Son denies further questions.
[2022-08-12] MEDS: Fluticasone 0.05% 1 SPRAY NASAL.SRY NASAL (21:48)
[2022-08-13 03:47] VITALS: BP 126/94; PULSE 68; RESP 16; TEMP 36.7; O2SAT 96
[2022-08-13 06:42] LABS: Absolute Lymphocyte Count 1.86 X10^3/uL (0.83-4.51); Absolute Neutrophil Count 12.5 X10^3/uL (2.0-7.7); Basophil# 0.01 X10^3/uL; Basophil% 0.1 % (0-1); Hematocrit 39.2 % (37-47); Lymphocyte # 1.86 X10^3/ul (0.83-4.51); Lymphocyte % 12.2 % (19-41); Mean Corp Hgb Conc 33.2 g/dL (32-36); Mean Corpuscular Hgb 29.3 pg (27.0-32.0); Mean Corpuscular Volume 88.3 fL (81-99); Monocyte# 0.73 X10^3/uL; Monocyte% 4.8 % (0-10); NRBC Flagged by Analyzer 0 % (0-5); Neutrophil # 12.54 X10^3/uL (2.7-7.7); Platelet Count 279 K/mm3 (150-450); RBC Distribution Width CV 12.7 % (11.6-14.6); RBC Distribution Width SD 41.2 fl (35.1-43.9); Red Blood Count 4.44 M/mm3 (4.2-5.4); White Blood Count 15.3 K/mm3 (4.4-11.0)
[2022-08-13 07:13] LABS: ALB/GLOB Ratio 0.7 RATIO (0.9-2.4); AST(SGOT) 20 U/L (15-37); Alanine Aminotransfer ALT/SGPT 21 U/L (13-56); Albumin, Serum 3.5 g/dL (3.2-5.0); Alkaline Phosphatase 44 U/L (45-117); Anion Gap 5 (5-15); BUN 16 mg/dL (7-18); BUN/Creat Ratio 20.4 RATIO (10-20); Calcium,Total 9.1 mg/dL (8.5-10.1); Chloride 101 mmol/L (98-107); Creatinine, Serum 0.79 mg/dL (0.55-1.02); EST Glomerular Filtration Rate 74 mL/min (>60); Est Glom Filt Rate - Afr Amer 89 mL/min (>60); Estimated Creatinine Clearance 32.21 ml/min; Globulin 4.8 g/dL (2.2-4.2); Glucose 100 mg/dL (74-106); Potassium 3.1 mmol/L (3.5-5.1); Protein, Total 8.3 g/dL (6.4-8.2); Sodium Level 137 mmol/L (136-145)
--- NOTE | 2022-08-13 07:16 | PN.HOSP_ITS ---
Subjective Subjective DOS: 08/13/2022 CC: Why am I here This morning wondering why she is here, when asked where she thought she was she said she did not know but the place where she used to get pizza, when asked what kind of building it was she reported it was a storefront, unsure of the year. Denies chest pain or shortness of breath, said she is not currently having pain but that is because she has not been moving around. Denied any other complaints this morning Objective Data Objective Data Vital Signs: Vital Signs Temp Pulse Resp BP Pulse Ox O2 Del Method 98.1 F 68 16 126/94 H 96 Room Air 08/13/22 03:47 08/13/22 03:47 08/13/22 03:47 08/13/22 03:47 08/13/22 03:47 08/13/22 03:47 Oxygen Delivery Method Room Air Weight: 49.6 kg Body Mass Index (BMI) 18.2 Intake & Output: Intake and Output for Last 24 Hours 08/11/22 08/12/22 08/13/22 23:59 23:59 23:59 Intake Total 1432.5 / 1632.5 300 / 300 Output Total 400 / 400 Balance 1032.5 / 1232.5 300 / 300 Lab / Micro Data Result Diagrams: 08/13/22 05:35 08/13/22 05:35 Labs: Laboratory Results - last 24 hr 08/13/22 05:35: WBC 15.3 H, RBC 4.44, Hgb 13.0, Hct 39.2, MCV 88.3, MCH 29.3, MCHC 33.2, RDW Std Deviation 41.2, RDW Coeff of Jeremy 12.7, Plt Count 279, MPV 10.0, Immature Gran % (Auto) 0.900, Neut % (Auto) 82.0 H, Lymph % (Auto) 12.2 L, Lares % (Auto) 4.8, Eos % (Auto) 0.0, Baso % (Auto) 0.1, Absolute Neuts (auto) 12.5 H, Absolute Lymphs (auto) 1.86, Nucleated RBC % 0 08/13/22 05:35: Sodium 137, Potassium 3.1 L, Chloride 101, Carbon Dioxide 31.0, Anion Gap 5, BUN 16, Creatinine 0.79, Estim Creat Clear Calc 32.21, Est GFR (MDRD) Af Amer 89, Est GFR (MDRD) Non-Af 74, BUN/Creatinine Ratio 20.4 H, Glu cose 100, Calcium 9.1, Total Bilirubin 0.90, AST 20, ALT 21, Alkaline Phosphatase 44 L, Total Protein 8.3 H, Albumin 3.5, Globulin 4.8 H, Albumin/Globulin Ratio 0.7 L Physical Exam Const alert and no apparent distress Constitutional Narrative: Not oriented HEENT normocephalic and head/scalp atraumatic Eyes Eyes Narrative: EOM grossly intact, anicteric Neck supple Resp normal respiratory effort and clear to auscultation bilaterally Cardio regular rate and regular rhythm GI soft to palpation, non-tender and non-distended Extremity Extremity Narrative: No edema appreciated Neuro moves all extremities Neuro Narrative: No overt focal deficits appreciated Psych Psych Narrative: Cooperative Assessment & Plan Assessment/Plan (1) Fracture of inferior pubic ramus: PLAN: Plan #Acute fracture of distal right inferior pubis Seen on x-ray Pain control and muscle relaxers as needed?does not seem to require either of these. 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
[2022-08-13] MEDS: Potassium Chloride Oral Tablet 20 MEQ 40 MEQ PO (07:52)
[2022-08-13 08:28] VITALS: BP 148/88; PULSE 91; RESP 18; TEMP 36.6; O2SAT 93
[2022-08-13 09:27] VITALS: O2SAT 97
[2022-08-13] MEDS: Oxybutynin 5 MG Tablet PO (10:00)
[2022-08-13] MEDS: Calcium (Elemental) 500 MG Tablet PO (10:00)
[2022-08-13] MEDS: Enoxaparin 30 MG/0.3 ML Syringe SC (10:00)
[2022-08-13] MEDS: amLODIPine 5 MG Tablet PO (10:01)
[2022-08-13] MEDS: Carboxymethylcellulose sodium gel dropperette EACH EYE (10:01)
[2022-08-13] MEDS: Senna/Docusate Sodium 1 Tablet 2 TABLET PO (10:01)
[2022-08-13 10:02] VITALS: PULSE 80
[2022-08-13] MEDS: Timolol 0.5% 5ML OPTH.BTL 1 DRP EACH EYE (10:02)
[2022-08-13] MEDS: Metoprolol(XL)Succ 50 MG Tablet PO (10:02)
[2022-08-13] MEDS: Menthol/Lanolin/Calamine/Znox 113 GM Tube 1 APPLIC TOPICAL (10:03)
[2022-08-13] MEDS: Ensure Plus High Protein 120 ML LIQUID PO (10:05)
--- NOTE | 2022-08-13 11:44 | CASEMGMT ---
Addendum entered by Quintin Ramírez 08/13/22 12:04: Call received back from Gabriela @ [facility]. They are able to accept pt w/SOC slated for Tuesday. She stated she will contact pt's son, Keith. Original Note: MEGA DOMINGUEZ NOTE: [facility] liason informed MEGA DOMINGUEZ that she just met w/pt's son, and he has signed pt on for Palliative Care. She also states son inquiring about HHC for therapy. MEGA DOMINGUEZ met w/son, Keith, in [facility] on [facility] and he confirms he is interested in HHC for therapy. Keith provided w/list of HHC providers including quality and resource use data and consistent with the patient?s preferred geographic region, medical needs, and insurance network were provided from the [facility] Guide. His first choice is [facility]. Call placed to Gabriela [facility] and referral made for PT/OT. She was also made aware pt is discharging to [facility] today. Awaiting response re: acceptance. Order placed for HHC: PT/OT. Jenelle PALOMARES RN, CM
--- NOTE | 2022-08-13 12:47 | DCINST_ITS ---
Discharge Instructions Diet Discharge Diet: No restrictions Activity Discharge Activity: - (Will need assist ) Follow Up Care Test Results: Test results from this visit will be discussed in further detail at your follow- up appointment, if applicable. Discharge Plan Admission Admit Date/Time: 08/11/22 18:46 Primary Reason for Your Visit: Fall Attending Provider: Jeannie Cloud Primary Care Provider: Franci Zendejas Consulting Providers: Noah Campo Instructions Patient Instructions: Fall Prevention Assessing Risk, Exercises to Prevent Falls, ED Mechanical Fall Additional Instructions / Restrictions: ? Would recommend neck strength Tylenol for pain control, he did not require any opioids while you were admitted -Please call your primary care provider's office upon discharge to schedule a hospital follow up within 1 week. -For any concerning signs or symptoms please call 911 or proceed to the nearest emergency department Discharge Orders/Prescriptions Prescriptions: Continued calcium carbonate [Calcium 600] 600 mg calcium (1,500 mg) tablet 600 mg PO BID fluticasone propionate 1 SPRAY spray,suspension 1 spray NASAL QHS Label Comments: allergies oxybutynin chloride 5 MG tablet 5 mg PO DAILY Label Comments: Take 1 tablet by mouth three times daily. metoprolol succinate 50 mg Tablet Extended Release 24 Hr 50 mg PO DAILY timolol maleate 0.5 % Drops 1 drp EACH EYE BID Soothe XP 1-4.5 % Drops 1 drp OPHTHALMIC (EYE) BID ondansetron 4 mg tablet,disintegrating 4 mg PO Q8H PRN (Reason: nausea and vomiting) Qty: 10 0RF multivitamin [Daily-Noel] Tablet 1 tab PO DAILY amlodipine 5 mg tablet 5 mg PO DAILY Qty: 90 3RF Referrals / Follow Up: Franci Zendejas MD [Primary Care Provider] - Disposition Disposition (needs filled in before D/C Order can be placed): Assisted Living
--- NOTE | 2022-08-13 12:52 | DS.PCM_ITS ---
Providers Date of Admission: 08/11/22 Date of Discharge: 08/13/22 Primary Care Physician: Dr. Franci Zendejas MD Reason For Visit: RIGHT INFERIOR PUBIC RAMUS FRACTURE Diagnosis Discharge Diagnosis (1) Fracture of inferior pubic ramus: Status: Acute Code(s): S32.599A - Other specified fracture of unspecified pubis, initial encounter for closed fracture Plan #Acute fracture of distal right inferior pubis #Fall #Dementia Medications at Discharge Home Medications fluticasone propionate 50 mcg/actuation nasal spray,suspension 1 spray QHS a llergies 07/01/16 calcium carbonate 600 mg calcium (1,500 mg) tablet (Calcium) 600 mg PO BID supplementation 11/30/17 oxybutynin chloride 5 mg tablet 5 mg PO DAILY uterovgainal prolapse 03/16/19 amlodipine 5 mg tablet 5 mg PO DAILY #90 tabs 01/08/21 light mineral oil 1 %-mineral oil 4.5 % eye drops (Soothe XP) 1 drp ophthalmic (eye) BID dry eyes 06/26/21 metoprolol succinate 50 mg tablet,extended release 24 hr 50 mg PO DAILY hypertension 06/26/21 ondansetron 4 mg disintegrating tablet 4 mg PO Q8H PRN nausea and vomiting #10 tabs 06/26/21 timolol maleate 0.5 % eye drops 1 drp EACH EYE BID 06/26/21 multivitamin (Daily-Noel tablet) 1 tab PO DAILY 08/12/22 Hospital Course Summary of Care Provided Minutes Spent on Discharge: 25 Hospital Course: Enriqueta Gomez is a 87 F?with a history of dementia and hypertension [facility] having a fall 2 days before where she slid down from the bed. The day after she was able to get into her Rollator and was doing okay but on the day of admission she was complaining of severe hip pain and was not able to stand or sit even with the 2 people assist. Had a right hip arthroplasty in about 2015. History at the time was obtained by her son because she has advanced dementia. In ED x-ray showed stable right hip prosthesis but acute fracture of distal right inferior pubis. Physical therapy worked with her, and she was stabilized. Was not requiring the as needed pain medication and reported being comfortable laying in bed this morning. No further necessity for inpatient medical admission. She will return to assisted living with home health. Physical Exam Const alert and no apparent distress Constitutional Narrative: Not oriented HEENT normocephalic and head/scalp atraumatic Eyes Eyes Narrative: EOM grossly intact, anicteric Neck supple Resp normal respiratory effort and clear to auscultation bilaterally Cardio regular rate and regular rhythm GI soft to palpation, non-tender and non-distended Extremity Extremity Narrative: No edema appreciated Neuro moves all extremities Neuro Narrative: No overt focal deficits appreciated Psych Psych Narrative: Cooperative Weight / BMI Weight Weight: 49.6 kg Body Mass Index (BMI) 18.2 ABG / Lab / Microbiology Data Result Diagrams: 08/13/22 05:35 08/13/22 05:35 Laboratory: Laboratory Results - last 24 hr 08/13/22 05:35: WBC 15.3 H, RBC 4.44, Hgb 13.0, Hct 39.2, MCV 88.3, MCH 29.3, MCHC 33.2, RDW Std Deviation 41.2, RDW Coeff of Jeremy 12.7, Plt Count 279, MPV 10.0, Immature Gran % (Auto) 0.900, Neut % (Auto) 82.0 H, Lymph % (Auto) 12.2 L, [place] % (Auto) 4.8, Eos % (Auto) 0.0, Baso % (Auto) 0.1, Absolute Neuts (auto) 12.5 H, Absolute Lymphs (auto) 1.86, Nucleated RBC % 0 08/13/22 05:35: Sodium 137, Potassium 3.1 L, Chloride 101, Carbon Dioxide 31.0, Anion Gap 5, BUN 16, Creatinine 0.79, Estim Creat Clear Calc 32.21, Est GFR ( RD) Af Amer 89, Est GFR (MDRD) Non-Af 74, BUN/Creatinine Ratio 20.4 H, Glucose 100, Calcium 9.1, Total Bilirubin 0.90, AST 20, ALT 21, Alkaline Phosphatase 44 L, Total Protein 8.3 H, Albumin 3.5, Globulin 4.8 H, Albumin/Globulin Ratio 0.7 L D/C Instructions Discharge Diet: No restrictions Meaningful Use Info Meaningful Use Diagnoses (Choose all that apply): None applicable Discharge Plan Admission Admit Date/Time: 08/11/22 18:46 Primary Reason for Your Visit: Fall Attending Provider: Jeannie Cloud Primary Care Provider: Franci Zendejas Consulting Providers: Noah Campo Instructions Patient Instructions: Fall Prevention Assessing Risk, Exercises to Prevent Fal ls, ED Mechanical Fall Additional Instructions / Restrictions: ? Would recommend neck strength Tylenol for pain control, he did not require any opioids while you were admitted -Please call your primary care provider's office upon discharge to schedule a hospital follow up within 1 week. -For any concerning signs or symptoms please call 911 or proceed to the nearest emergency department Discharge Orders/Prescriptions Prescriptions: Continued calcium carbonate [Calcium 600] 600 mg calcium (1,500 mg) tablet 600 mg PO BID fluticasone propionate 1 SPRAY spray,suspension 1 spray NASAL QHS Label Comments: allergies oxybutynin chloride 5 MG tablet 5 mg PO DAILY Label Comments: Take 1 tablet by mouth three times daily. metoprolol succinate 50 mg Tablet Extended Release 24 Hr 50 mg PO DAILY timolol maleate 0.5 % Drops 1 drp EACH EYE BID Soothe XP 1-4.5 % Drops 1 drp OPHTHALMIC (EYE) BID ondansetron 4 mg tablet,disintegrating 4 mg PO Q8H PRN (Reason: nausea and vomiting) Qty: 10 0RF multivitamin [Daily-Noel] Tablet 1 tab PO DAILY amlodipine 5 mg tablet 5 mg PO DAILY Qty: 90 3RF Referrals / Follow Up: Franci Zendejas MD [Primary Care Provider] - Disposition Disposition (needs filled in before D/C Order can be placed): Assisted Living Charges/Coding Visit Charges OBSV E&M: 16249 Observation care discharge
--- NOTE | 2022-08-13 14:58 | CASEMGMT ---
Social Work Per physician pt is ready for discharge today. Discharge orders and covid results faxed to [facility]. Pt's son did meet with Palliative Care today and signed papers for their services. Berenice at [facility] updated on discharge. 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 Pt son notified of discharge plan and agreeable. Nursing notified. LIZ Mcnamara
== END 2022-08-13 17:02 | disposition home health service (06) ==
LOC: ED 18:51 → MS3 19:04
PROVIDERS: Admitting Provider Internal Medicine; Emergency Provider Emergency Medicine; PCP Internal Medicine; Visit Provider Internal Medicine
DX: S32.591A Other specified fracture of right pubis, initial encounter for closed fracture (principal); G30.9 Alzheimer's disease, unspecified; F02.80 Dementia in other diseases classified elsewhere, unspecified severity, without behavioral disturbance, psychotic disturbance, mood disturbance, and anxiety; I10 Essential (primary) hypertension; W19.XXXA Unspecified fall, initial encounter; G62.9 Polyneuropathy, unspecified; Z96.641 Presence of right artificial hip joint
CPT/HCPCS: 36415; 73502; 80048; 80053; 85025; 87426; 96361; 96372; 96374; 97162; 97166; 97530; 97535; 99218; 99251; 99285; J7120; A4216; G0378; G0463